=== PATIENT | female | born 1975 | race Caucasian/White ===

== ENCOUNTER 2022-06-22 17:47 | Outpatient (CLI) | payer OTHER ==
[2022-06-24 04:07] LABS: HIV SCREEN 4TH GENERATION Non Reactive (Non Reactive)
[2022-06-24 05:08] LABS: HCV AB <0.1 s/co ratio (0.0-0.9)
== END 2022-06-22 23:59 | disposition home or self-care (01) ==
LOC: LAB.N 17:47
PROVIDERS: ATTEND Family Medicine
DX: S61.239A Puncture wound without foreign body of unspecified finger without damage to nail, initial encounter (principal)
CPT/HCPCS: 36415; 86704; 86803; 87389

== ENCOUNTER 2024-05-07 10:36 | Outpatient (CLI) | payer OTHER ==
--- NOTE | 2024-05-14 10:00 | Mammography Report ---
BILATERAL DIGITAL SCREENING MAMMOGRAM 3D/2D WITH AUGMENTATION: 05/07/2024 CLINICAL: Routine screening. Additional films were requested but not obtained. There are scattered areas of fibroglandular density (category b / 25%-50% glandular tissue). Bilateral breast implants are present. No significant masses, calcifications, or other findings are seen in either breast. IMPRESSION: NEGATIVE There is no mammographic evidence of malignancy. A 1 year screening mammogram is recommended. Based on the Tyrer Cuzick model (a risk assessment model) the patient's lifetime risk is 7.6% and her 10 year risk is 1.7%. According to the ACR, ACS, and NCCN guidelines, an annual breast MRI exam sanju g with mammogram is recommended if the patient's lifetime risk is 20% or greater. This exam was interpreted at Station ID: [id number]. NOTE: For mammograms, a report in lay terms will be sent to the patient. Approximately 15% of breast malignancies will not be visualized mammographically. In the management of a palpable breast mass, a negative mammogram must not discourage biopsy of a clinically suspicious lesion. Electronically Signed By: Tiara menendez/grecia:05/14/2024 08:44:43 letter sent: No_Letter ACR BI-RADS Category 1: Negative 3341F PARENCHYMAL PATTERN: (A) - The breast(s) demonstrate(s) scattered fibroglandular densities. BI-RADS CATEGORY: (1) - 1 RECOMMENDATION: (ANNUAL) - Recommend routine annual screening mammography. [id number] 1 year screening LATERALITY: (B)
== END 2024-05-07 10:37 | disposition home or self-care (01) ==
LOC: DI 10:36
DX: Z12.31 Encounter for screening mammogram for malignant neoplasm of breast (principal); Z98.82 Breast implant status